=== PATIENT | female | born 1950 | race Caucasian/White ===

== ENCOUNTER → 2019-11-22 | Outpatient (CLI) | payer OTHER ==
[~2019-11-22] MED LIST: AUGMENTIN 875-1 EACH PO; CEFUROXIME500 MG PO; CHOLESTYRAMINE P4 GM PO; CLONAZEPAM 1 MG1 M1 PO; FLAGYL500 MG PO; GLUCOPHAGE XR750 MG PO; LEXAPRO20 MG PO; PROTONIX40 M1 PO
== END ==
LOC: SJCVCIMAG 13:10
PROVIDERS: ATTEND Podiatrist Foot & Ankle Surgery
DX: I73.9 Peripheral vascular disease, unspecified (principal)

== ENCOUNTER → 2020-03-30 | Outpatient (CLI) | payer OTHER | LOC: LAB 10:34 | PROVIDERS: ATTEND Internal Medicine | DX: Z01.812 Encounter for preprocedural laboratory examination (principal); Z20.828 Contact with and (suspected) exposure to other viral communicable diseases ==